=== PATIENT | male | born 1995 | race Caucasian/White ===

== ENCOUNTER 2021-06-14 04:10 | Day surgery (SDC) | payer OTHER ==
[2021-06-10 09:47] VITALS: BMI 22.1
[2021-06-14 09:17] VITALS: TEMP 98.1
[2021-06-14 10:44] LABS: BLOOD UREA NITROGEN 13.6 mg/dL (7-18)
[2021-06-14 10:47] LABS: CREATININE 0.9 mg/dL (0.55-1.3)
[2021-06-14 10:55] VITALS: BP 112/62; PULSE 76
== END 2021-06-14 10:27 | disposition home or self-care (01) ==
LOC: JASU-ENDO 04:10
PROVIDERS: ATTEND Internal Medicine Gastroenterology
PROC: 0DB68ZX Excision of Stomach, Via Natural or Artificial Opening Endoscopic, Diagnostic (ICD-10-PCS; 2021-06-14)
PROC: 0DB98ZX Excision of Duodenum, Via Natural or Artificial Opening Endoscopic, Diagnostic (ICD-10-PCS; principal; 2021-06-14 09:15)
DX: K29.50 Unspecified chronic gastritis without bleeding (principal); K29.80 Duodenitis without bleeding
CPT/HCPCS: 36415; 80048; 88305-TC; 88342-TC